=== PATIENT | male | born 1960 | race Caucasian/White ===

== ENCOUNTER 2021-10-27 02:15 | Outpatient (CLI) | payer OTHER, SELFPAY ==
[2021-10-27 11:11] LABS: ESR 2 mm/hr (0-20)
[2021-10-27 11:28] LABS: Hemoglobin A1C 5.4 % (<5.7)
[2021-10-27 12:15] LABS: Anion Gap 5.6 mmol/L (3-11); BUN 15 mg/dL (7-18); CO2 30.4 mmol/L (21.0-32.0); CREATININE 0.9 mg/dL (0.70-1.30); Calcium 9.1 mg/dL (8.5-10.1); Calculated LDL 149 mg/dL (<100); Chloride 105 mmol/L (98-107); Cholesterol 227 mg/dL (<200); Glucose 93 mg/dL (74-106); HDL Cholesterol 58 mg/dL (40-60); Potassium 4.7 mmol/L (3.5-5.1); Sodium 141 mmol/L (136-145); Triglyceride 104 mg/dL (<150)
[2021-10-28 13:59] LABS: PSA, Ultrasensitive <0.01 ng/mL (<= 4.5)
== END 2021-10-27 02:16 | disposition home or self-care (01) ==
LOC: LBO 02:16
PROVIDERS: PCP Nurse Practitioner Family; Visit Provider Nurse Practitioner
DX: R03.0 Elevated blood-pressure reading, without diagnosis of hypertension (principal); Z13.1 Encounter for screening for diabetes mellitus; Z87.39 Personal history of other diseases of the musculoskeletal system and connective tissue; Z13.6 Encounter for screening for cardiovascular disorders; Z85.46 Personal history of malignant neoplasm of prostate
CPT/HCPCS: 36415; 80048; 80061; 84153; 85652; 83036

== ENCOUNTER 2022-05-15 20:46 | Outpatient (REF) | payer OTHER, SELFPAY ==
[2022-05-15 21:21] LABS: Anion Gap 8.7 mmol/L (3-11); BUN 16 mg/dL (7-18); CO2 28.3 mmol/L (21.0-32.0); CREATININE 0.8 mg/dL (0.70-1.30); Calcium 9.2 mg/dL (8.5-10.1); Calculated LDL 109 mg/dL (<100); Chloride 104 mmol/L (98-107); Cholesterol 188 mg/dL (<200); Estimated GFR 101.32 (mL/min/1.73m2); Glucose 110 mg/dL (74-106); HDL Cholesterol 66 mg/dL (40-60); Potassium 4.2 mmol/L (3.5-5.1); Sodium 141 mmol/L (136-145); Triglyceride 69 mg/dL (<150)
[2022-05-17 17:55] LABS: PSA, Ultrasensitive <0.01 ng/mL (<= 4.5)
== END 2022-05-15 20:47 | disposition home or self-care (01) ==
LOC: LBN 20:46
PROVIDERS: PCP Nurse Practitioner Family; Visit Provider Nurse Practitioner Family
DX: Z85.46 Personal history of malignant neoplasm of prostate (principal); I10 Essential (primary) hypertension; E78.5 Hyperlipidemia, unspecified
CPT/HCPCS: 80048; 80061; 84153

== ENCOUNTER 2022-12-13 11:42 | Outpatient (CLI) | payer OTHER, SELFPAY ==
[2022-12-13 12:32] LABS: ALT 46 U/L (16-63); AST 30 U/L (15-37); Alkaline Phosphatase 58 U/L (46-116); Anion Gap 6.7 mmol/L (3-11); BUN 16 mg/dL (7-18); Bilirubin, Total 0.5 mg/dL (0.2-1.0); CO2 31.3 mmol/L (21.0-32.0); CREATININE 0.9 mg/dL (0.70-1.30); Calcium 9.3 mg/dL (8.5-10.1); Calculated LDL 106 mg/dL (<100); Chloride 102 mmol/L (98-107); Cholesterol 176 mg/dL (<200); Estimated GFR 97.17 (mL/min/1.73m2); Glucose 95 mg/dL (74-106); HDL Cholesterol 62 mg/dL (40-60); Potassium 4.1 mmol/L (3.5-5.1); Sodium 140 mmol/L (136-145); Total Protein 7.3 g/dL (6.4-8.2); Triglyceride 43 mg/dL (<150)
[2022-12-17 17:10] LABS: PSA, Ultrasensitive <0.01 ng/mL (<= 4.5)
== END 2022-12-13 11:43 | disposition home or self-care (01) ==
PROVIDERS: PCP Nurse Practitioner Family; Visit Provider Nurse Practitioner Family
DX: I10 Essential (primary) hypertension (principal); E78.5 Hyperlipidemia, unspecified; Z85.46 Personal history of malignant neoplasm of prostate
CPT/HCPCS: 36415; 80053; 80061; 84153

== ENCOUNTER 2025-09-13 16:30 | Outpatient (REF) | payer OTHER, SELFPAY ==
[2025-09-13 21:33] LABS: Glucose Negative (Negative)
[2025-09-13 21:53] LABS: C & S Indicated? Yes; WBC 0-2 HPF (0-5)
[2025-09-13 22:06] LABS: ALT 25 U/L (10-49); AST 28 U/L (<34); Albumin 4.2 g/dL (3.2-5.0); Alkaline Phosphatase 77 U/L (46-116); Anion Gap 10.1 mmol/L (3-11); BUN 20 mg/dL (9-23); Bilirubin, Total 0.6 mg/dL (0.2-1.2); CO2 28.9 mmol/L (20.0-31.0); Calcium 9.2 mg/dL (8.3-10.6); Chloride 104 mmol/L (98-107); Cholesterol 189 mg/dL (<200); Glucose 114 mg/dL (74-106); HDL Cholesterol 60 mg/dL (>or=40); Potassium 3.9 mmol/L (3.5-5.1); Sodium 143 mmol/L (136-145); Total Protein 6.8 g/dL (5.7-8.2)
[2025-09-13 22:09] LABS: Microalb ug/mg Crea 2.5 ug/mg Cr
== END 2025-09-13 16:31 | disposition home or self-care (01) ==
LOC: NCHCN 16:30
PROVIDERS: Visit Provider Nurse Practitioner Family
DX: I10 Essential (primary) hypertension (principal); E78.2 Mixed hyperlipidemia; Z85.46 Personal history of malignant neoplasm of prostate
CPT/HCPCS: 80053; 80061; 84153; 81003; 81015; 82043; 82570; 87086